=== PATIENT | female | born 1945 | race Caucasian/White ===

== ENCOUNTER → 2019-03-02 15:27 | Outpatient (CLI) | payer OTHER | END | disposition home or self-care (01) | LOC: D.LABREF 15:27 | PROVIDERS: ATTEND Urology | DX: R82.90 Unspecified abnormal findings in urine (principal); R31.9 Hematuria, unspecified ==

== ENCOUNTER → 2019-03-21 17:09 | Outpatient (CLI) | payer OTHER | END | disposition home or self-care (01) | LOC: D.LABREF 17:09 | PROVIDERS: ATTEND Urology | DX: R82.90 Unspecified abnormal findings in urine (principal); R31.9 Hematuria, unspecified ==

== ENCOUNTER → 2019-04-06 09:16 | Outpatient (CLI) | payer OTHER | END | disposition home or self-care (01) | LOC: D.LABREF 09:16 | PROVIDERS: ATTEND Urology | DX: R82.90 Unspecified abnormal findings in urine (principal) ==

== ENCOUNTER → 2019-04-25 13:12 | Outpatient (CLI) | payer OTHER | END | disposition home or self-care (01) | LOC: D.LABREF 13:12 | PROVIDERS: ATTEND Urology | DX: R82.90 Unspecified abnormal findings in urine (principal) ==

== ENCOUNTER 2019-05-08 06:50 | Day surgery (SDC) | payer OTHER ==
[2019-05-07 10:53] LABS: HEMATOCRIT 36.6 % (36.0-48.0); HEMOGLOBIN 12.4 g/dL (12-16); MCH 31.6 pg (26.0-34.0); MCHC 33.9 g/dL (31.0-37.0); MCV 93.4 fL (80.0-100.0); RBC 3.92 10x6/uL (4.00-5.40); RDW 12.9 % (11.5-14.5); WBC 7.4 10x3/uL (4.8-10.8)
[~2019-05-08] VITALS: Ht 172.7 cm; Wt 82.3 kg
[~2019-05-08 06:50] MED LIST: ASPIRIN EC81 M1 PO; COZAAR50 MG PO; ELIQUIS5 MG PO; MIRALAX17 GM PO; OMEPRAZOLE20 M1 PO; TESSALON PERLE100 MG PO; ULTRAM50 MG PO
[2019-05-08 08:02] VITALS: BP 155/72; Ht 172.7 cm; Wt 82.3 kg
--- NOTE | 2019-05-08 14:53 | NUR ---
SPOKE WITH BJ ANESTHESIA BECAUSE PT IS COMPLAINING OF NAUSEA. STATES TO ORDER 4MG OF ZOFRAN IV, ONE TIME.
--- NOTE | 2019-05-08 15:49 | NUR ---
VAGINAL PACKING RMEOVED BY ISA BAGLEY AT THIS TIME, PT AMBULATED TO BATHROOM WITH ASSISTANCE TO ATTEMT TO VOID.
--- NOTE | 2019-05-08 15:58 | NUR ---
PT ON COMMODE AT THIS TIME, ATTEMPTING TO URINTATE.
--- NOTE | 2019-05-08 16:50 | NUR ---
PT AMBULATED TO BATHROOM WITH ASSISTANCE FOR 2ND TIME TO ATTEMPT TO URINATE.
--- NOTE | 2019-05-08 16:59 | NUR ---
PT STATES THAT SHE IS "OK" WITH NGO INSERTION BECAUSE SHE IS UNABLE TO URINATE AT THIS TIME.
--- NOTE | 2019-05-08 17:21 | NUR ---
PT UNABLE TO URINATE, NGO CATH INSERTED AT THIS TIME PER ORDER, USING STERILE TECHNIQUE. 2RN ISA CURIEL AT BEDSIDE FOR ASSISTANCE. PT TOLERATED WELL. 700ML CLEAR YELLOW URINE NOTED TO NGO BAG.
--- NOTE | 2019-05-08 17:42 | NUR ---
PT STATES THAT SHE IS FEELING BETTER AND WOULD LIKE TO GO HOME. PT DC INSTRUCTIONS REVIEWED AT THIS TIME, PT AND FAMILY VERBALIZE UNDERSTANDING. PT INFORMED THAT THEY MUST CALL OFFICE IN THE MORNING TO RESCHEDULE FOLLOW UP APPT DUE TO THE NEED FOR NGO REMOVAL. PT AND FAMILY VERBALIZE UNDERSTANDING, AND STATE THEY WILL CALL OFFICE IN THE MORNING. IV REMOVED AT THIS TIME, INTACT, NO REDNESS OR SWELLING NOTED AT SITE.
--- NOTE | 2019-05-08 17:44 | NUR ---
PT LEAVING OPS AT THIS TIME VIA WC, NAD NOTED.
--- NOTE | 2019-05-09 08:54 | OP ---
PATIENT NAME: SAGE RYDER MEDICAL RECORD: [id number] :43 LOCATION:[facility] ADMISSION DATE: SURGEON: ASHLY LOCKWOOD MD DATE OF OPERATION: 05/08/2019 SURGEON: Ashly Lockwood MD ANESTHESIA: General anesthesia by Dianne Draper CRNA PREOPERATIVE DIAGNOSES: Midline cystocele, Wentworth-Walker grade III; enterocele Wentworth-Walker grade III; rectocele Wentworth-Walker grade I. POSTOPERATIVE DIAGNOSES: Midline cystocele, Wentworth-Walker grade III; enterocele Wentworth-Walker grade III; rectocele Wentworth-Walker grade I. PROCEDURE: Cystoscopy, cystocele repair with cadaveric dermis 8 x 12 cm graft. SPECIMENS: None. BLOOD LOSS: None. CLINICAL HISTORY: This is a 73-year-old female, G3, P3, A0, who had a hysterectomy at age 34 for heavy menses. She has a cystocele, grade III and I assumed a rectocele grade II on examination. She has a prominent bulge coming from the vagina. She also has difficulty emptying her bladder and recurrent urinary tract infections. She does not have any stress incontinence. She is on estrogen treatment to treat atrophic vaginitis. She was on Eliquis in the past and she got clearance from her customer security clerk to hold her Eliquis. SHE IS ALLERGIC TO PAPER TAPE, ADHESIVES, AND MULTIPLE ANTIBIOTICS, but not Ancef. She was given Ancef on trial to the OR. DESCRIPTION OF PROCEDURE: The patient was given induction of general anesthesia in supine position. She was then placed into lithotomy position and prepped and draped. The bulge could be seen from the vaginal introitus. A Garcia catheter was placed into the bladder and put to bag drainage. A weighted speculum was used to hold the posterior vaginal wall down. The labia majora were then retracted laterally using stay sutures of #1 nylon. These were anchored to the medial thighs. I then infiltrated the anterior vaginal wall with vasopressin solution. Twenty units of vasopressin was dissolved in 100 mL of injectable normal saline. The solution was used for hydrodissection of the anterior vaginal wall. A transverse incision was then made at the level of the bladder neck on the anterior vaginal wall. Dissection was then carried out using Metzenbaum scissors. We dissected the pubocervical fascia. We went down into the presacral space and on either side cleared the ischial spine and the attached sacrospinous ligaments. The attachments of the pubocervical fascia to the arcus tendinous fascia pelvis were taken down bluntly. Anteriorly, we took down the attachments to free the space of Retzius. Suspensory sutures of 2-0 Prolene were then placed. There was one suspensory suture placed into each sacrospinous ligament. The landmark for this is 1 cm medial to the ischial spine. This movement medially away from the ischial spine prevents hitting the internal pudendal artery and nerves. Anteriorly, one suture was placed at the Andrea's ligament on each side. Thus, we had 4 suspensory sutures. The vaginal dissection had gone down all the way down to the vaginal cuff. The distance here was measured at about 4 cm from the bladder neck to the vaginal cuff. The 8 x 12 graft was then brought out. I marked out an arch shape along 1 OPERATIVE REPORT [id number] RYDER,SAGE longitudinal wall. The apex of the arch is 4 cm distance from the offset edge of the arch. This was cut using Metzenbaum scissors and then the graft was allowed to hydrate in saline solution. The Garcia catheter was removed and cystoscopy was performed. No bladder tumor injury was noted by lack of suture passage through the bladder. The graft was cut into shape and through the respective corners of the graft, the Capio 2-0 Prolene sutures were placed. The 2 posterior graft arms were tied down first. Then, the 2 anterior graft arms were tied down. This resulted in good reduction of the cystocele. It became evident once the cystocele was finally all the way that most of the remaining bulge was not rectocele, but instead enterocele. There is actually very minimal rectocele. Therefore, I decided not to proceed with the rectocele repair as it would be unnecessary. The wound was irrigated out with normal saline. The transverse vaginal incision was closed using running 4-0 Monocryl. Vaginal packing was then inserted into the vagina. This will be removed prior to her going home. The Garcia catheter was removed. The stay sutures were removed. In order to fix the posterior enterocele, she will require a sacrospinous vaginal vault suspension. This would require entry into the abdomen, which we are not prepared to do today. TRANSINT:[id number] Voice Confirmation ID: [id number] DOCUMENT ID: [id number] ASHLY LOCKWOOD MD at [id number] CC: [id number] DICTATION DATE: 05/08/19 1310 HEALTH TECHNICAL WRITER: 05/08/191928 [facility] 05/08/19 [place] [id number] [place] [address]
== END 2019-05-08 15:44 | disposition home or self-care (01) ==
LOC: D.OPS 06:50 → D.PAN 09:10 → D.OPS 09:15 → D.PAN 09:40 → D.OPS 15:44
PROVIDERS: Anesthesiology; ATTEND Urology
DX: N81.11 Cystocele, midline (principal); K46.9 Unspecified abdominal hernia without obstruction or gangrene; N81.6 Rectocele; N30.01 Acute cystitis with hematuria; I48.91 Unspecified atrial fibrillation